=== PATIENT | male | born 1970 | race Caucasian/White ===

== ENCOUNTER 2018-06-24 19:17 | Emergency (ER) | payer BC ==
[2018-06-24] MEDS ORDERED: Bacitracin Zinc 1 Packet ONE (19:50)
[2018-06-24] MEDS ORDERED: AMOXicillin 250 MG CAP ONE (19:59)
== END 2018-06-24 19:58 | disposition home or self-care (01) ==
LOC: BURERS 19:17
DX: S61.452A Open bite of left hand, initial encounter (principal); S61.412A Laceration without foreign body of left hand, initial encounter; I10 Essential (primary) hypertension; F17.210 Nicotine dependence, cigarettes, uncomplicated; W54.0XXA Bitten by dog, initial encounter
CPT/HCPCS: 12001

== ENCOUNTER 2020-05-05 06:48 | Emergency (ER) | payer BC, SELFPAY ==
[2020-05-05] MEDS ORDERED: Nitroglycerin 0.4 MG TAB 1 EACH ONE (07:08)
[2020-05-05 07:14] LABS: #Eosinphils 0.1 thou/uL (0.0-0.7); #Lymphocytes 1.4 thou/uL (1.20-3.40); #Monocytes 0.4 thou/uL (0.11-0.59); #Neutrophils 4.9 thou/uL (1.40-6.50); %Basophils 0.7 % (0.0-1.0); %Eosinophils 1.9 % (0.0-10.0); %Monocytes 6.3 % (0.0-10.0); %Neutrophils 71.1 % (42.0-75.0); Hemoglobin 15.5 g/dL (14.0-18.0); Mean Corpuscular HGB CONC 31.7 g/dL (32.0-36.0); Mean Corpuscular Hemoglobin 31.1 pg (27.0-31.0); Mean Corpuscular Volume 98.1 fL (78.0-98.0); Platelet Count 208 thou/uL (130-400); RBC Distribution Width 11.9 % (11.5-14.5); White Blood Cell (WBC) Count 6.9 thou/uL (4.8-10.8)
[2020-05-05] MEDS ORDERED: Ondansetron PF 4 MG/2 ML Vial ONE (07:16)
[2020-05-05] MEDS ORDERED: Morphine 4 MG/ML VIAL ONE (07:16)
[2020-05-05 07:30] LABS: ALT (SGPT) 21 U/L (8-55); AST (SGOT) 14 U/L (5-34); Albumin 4.3 g/dL (3.5-5.0); Alkaline Phosphatase 49 U/L (40-110); Anion Gap 15 mmol/L (10-20); BUN (Urea Nitrogen) 11 mg/dL (8.9-20.6); Bilirubin, Total 0.6 mg/dL (0.2-1.2); Calc. Creatinine Clearance 0 mL/min (70-130); Calcium 9.1 mg/dL (7.8-10.44); Carbon Dioxide 24 mmol/L (22-29); Chloride 105 mmol/L (98-107); Estimated GFR-MDRD 67; Globulin 2.8 g/dL (2.4-3.5); Glucose 113 mg/dL (70-105); Lipase 16 U/L (8-78); Potassium 4.3 mmol/L (3.5-5.1); Protein, Total 7.1 g/dL (6.0-8.3); Sodium 140 mmol/L (136-145)
[2020-05-05] MEDS ORDERED: Nitroglycerin 2% Ointment 1 INCH/1 GM Packet ONE (07:43)
[2020-05-05] MEDS ORDERED: Fentanyl 100 MCG/2 ML VIAL ONE (08:09)
[2020-05-05] MEDS ORDERED: Aspirin Chewable 81 MG TAB ONE (08:15)
--- NOTE | 2020-05-05 10:59 | CT ---
PRELIMINARY REPORT/[facility]/EMERGENCY AFTER HOURS PROCEDURE Chest and abdominal CT angiogram History: Chest pain radiating to back Comparison: None Findings: No aortic aneurysm or dissection. No central pulmonary embolism. Sensitivity for detection of small peripheral emboli is limited. Clear lungs. No acute appearing infiltrate, consolidation or edema. No pleural or pericardial effusion. No pathologic intrathoracic lymphadenopathy. Fatty liver. Unremarkable spleen, adrenals, pancreas. Subtle faintly calcified approximately 2 cm gallstone is leonard spected near the gallbladder fundus on axial image 130. No pericholecystic inflammatory changes. Unr emarkable kidneys. No hydronephrosis. Unremarkable abdominal bowel loops. The pelvic structures are not imaged. No free fluid. No acute osseous abnormalities. Impression: No aortic dissection. No acute inflammatory process in the chest or abdomen. Cholelithias is. No pericholecystic inflammatory changes. ELECTRONICALLY SIGNED BY: Cecilio Norton MD May 05, 2020 7:54:23 AM CDT FINAL REPORT CT AORTIC DISSECTION WITH CONTRAST: DATE: 05/05/2020. FINDINGS: A CT angio of the chest and CT angio of the abdomen was performed to evaluate the entire aorta in thi s patient presenting with chest pain radiating to the back. Postprocessing reconstructions through t he arteries were obtained. The CT angio of the chest shows a normal-appearing aorta with no signs of dissection or aneurysm. Th ere is good filling of both coronary arteries. The pulmonary arteries fill well and show no sign of embolism. There is no sign of mediastinal mass, hematoma, or adenopathy. The lungs are clear. Ther e are no effusions. The CT angio of the abdomen shows good filling of the celiac, SMA, and ROSE branches. Both renal rasta rosario fill well and appear normal. The proximal iliac arteries are normal in appearance. There was n o sign of aneurysm or dissection at any level. The liver, spleen, pancreas, adrenal glands, and kidneys were unremarkable in appearance. There appe ars to be a partially calcified gallstone in the gallbladder. There is no wall thickening appreciate d. No free air or free fluid was seen. The visible portions of the bowel were unremarkable. IMPRESSION: 1. No evidence of aortic dissection, aneurysm, or pulmonary embolism. 2. No acute thoracic or abdominal findings. 3. Cholelithiasis. Report in agreement with preliminary reading by [facility]. POS: HOME
[2020-05-05] MEDS ORDERED: Iopamidol 370 76% 100 ML VIAL ONE (14:20)
== END 2020-05-05 08:34 | disposition short-term general hospital (02) ==
LOC: BURERS 06:48
DX: K80.20 Calculus of gallbladder without cholecystitis without obstruction (principal); R07.9 Chest pain, unspecified; I10 Essential (primary) hypertension; F17.210 Nicotine dependence, cigarettes, uncomplicated
CPT/HCPCS: 36415; 71275; 72191; 74175; 80053; 83690; 84484; 85025; 93005; 96374; 96375; J2270; J2405; J3010; Q9967